=== PATIENT | female | born 1945 | race Caucasian/White ===

== ENCOUNTER 2023-12-31 07:22 | Emergency (ER) | payer OTHER ==
[~2023-12-31] VITALS: Ht 160 cm; Wt 63.0 kg
[2023-12-31 07:29] VITALS: BP_SYST 172; PULSE 78; RESP 18; TEMP 98.3; O2SAT 98
[2023-12-31] MEDS: ONDANSETRON 4 MG ODT TAB PO ONE (07:55)
[2023-12-31] MEDS: MORPHINE 2 MG/ML INJ. SYRINGE IM ONE (08:01)
[2023-12-31] MEDS ORDERED: ONDA-8 TL (08:36)
[2023-12-31 08:53] VITALS: BP_SYST 172; PULSE 78; RESP 18; TEMP 98.3; O2SAT 98
== END 2023-12-31 08:55 | disposition home or self-care (01) ==
LOC: SED 07:22
DX: S52.571A Other intraarticular fracture of lower end of right radius, initial encounter for closed fracture (principal); Z79.899 Other long term (current) drug therapy; W22.8XXA Striking against or struck by other objects, initial encounter; Y93.89 Activity, other specified; Y92.89 Other specified places as the place of occurrence of the external cause; Y99.8 Other external cause status
CPT/HCPCS: 99283; 73100; 96372; Q0162; J2270

== ENCOUNTER 2024-05-23 13:59 | Emergency (ER) | payer OTHER ==
[~2024-05-23] VITALS: Ht 165.1 cm; Wt 56.7 kg
[~2024-05-23 13:59] MED LIST: ONDA-8 TL
[2024-05-23 14:11] VITALS: BP_SYST 195; PULSE 90; RESP 18; TEMP 98.3; O2SAT 98
[2024-05-23 15:04] LABS: BASOPHILS # (AUTO) 0.1 K/uL (0.0-0.2); BASOPHILS % (AUTO) 0.7 % (0.0-2.0); EOSINOPHILS # (AUTO) 0.3 K/uL (0.0-0.4); EOSINOPHILS % (AUTO) 3.4 % (0.0-4.0); HEMATOCRIT 37.3 % (36-48); HEMOGLOBIN 12.8 g/dL (12.0-16.0); LYMPHOCYTES % (AUTO) 30.1 % (20.5-51.5); MEAN CORPUSCULAR HEMOGLOBIN 31 pg (27-31); MEAN CORPUSCULAR HGB CONC 34 % (32-36); MEAN CORPUSCULAR VOLUME 91 fL (79.0-98.0); MONOCYTES # (AUTO) 0.5 K/uL (0.0-1.0); MONOCYTES % (AUTO) 4.5 % (1.7-9.3); NEUTROPHILS # (AUTO) 6.2 K/uL (1.8-7.7); NEUTROPHILS % (AUTO) 61.3 % (40.0-70.0); PLATELET COUNT (AUTO) 484 K/uL (130-430); RED CELL DISTRIBUTION WIDTH 13.3 % (9.0-15.0); WHITE BLOOD COUNT (AUTO) 10.1 K/uL (4.8-10.8)
[2024-05-23 15:27] LABS: ANION GAP 9 (5-15); CALCIUM 8.8 mg/dL (8.4-11.0); CARBON DIOXIDE 27 mmol/L (23-29); CHLORIDE 101 mmol/L (98-107); CREATININE 1.22 mg/dL (0.55-1.30); GLUCOSE 105 mg/dL (74-106); POTASSIUM 4.6 mmol/L (3.5-5.1); SODIUM SERUM 137 mmol/L (136-145); UREA NITROGEN, BLOOD 20 mg/dL (8-21)
[2024-05-23 16:58] VITALS: BP_SYST 152; PULSE 88; RESP 24; TEMP 98.3; O2SAT 97
== END 2024-05-23 16:25 | disposition home or self-care (01) ==
LOC: SED 13:59
DX: S46.812A Strain of other muscles, fascia and tendons at shoulder and upper arm level, left arm, initial encounter (principal); Z79.899 Other long term (current) drug therapy; X58.XXXA Exposure to other specified factors, initial encounter; Y93.89 Activity, other specified; Y92.89 Other specified places as the place of occurrence of the external cause; Y99.8 Other external cause status
CPT/HCPCS: 36415; 71045; 80048; 84484; 85025; 93005; 99283